=== PATIENT | male | born 1990 | race Caucasian/White ===

== ENCOUNTER 2022-03-06 13:01 | Emergency (ER) | payer SELFPAY ==
[~2022-03-06] VITALS: Ht 170.2 cm; Wt 83.9 kg
[2022-03-06 13:40] VITALS: BP 133/71
--- NOTE | 2022-03-06 13:59 | NUR ---
pt was triaged. while being roomed. patient no longer wanted to proceed with treatment. left ed. was not seen by antonietta. pat.
== END 2022-03-06 14:03 | disposition left against medical advice (07) ==
LOC: ER 13:07
DX: Z53.21 Procedure and treatment not carried out due to patient leaving prior to being seen by health care provider (principal)

== ENCOUNTER 2022-03-09 13:56 | Emergency (ER) | payer SELFPAY ==
[~2022-03-09] VITALS: Ht 170.2 cm; Wt 83.9 kg
[2022-03-09 14:29] VITALS: BP 119/70
[2022-03-09] MEDS ORDERED: NAPROXEN 250 MG TABLET ONE (19:11)
[2022-03-09] MEDS ORDERED: NAPR-1009 PO (19:16)
[2022-03-09] MEDS ORDERED: NAPROXEN 250 MG TABLET PO ONE (19:30)
== END 2022-03-09 19:41 | disposition home or self-care (01) ==
LOC: ER 14:02
DX: M79.672 Pain in left foot (principal); M79.671 Pain in right foot; F15.90 Other stimulant use, unspecified, uncomplicated; Z79.1 Long term (current) use of non-steroidal anti-inflammatories (NSAID)

== ENCOUNTER 2022-10-30 18:15 | Emergency (ER) | payer OTHER ==
[~2022-10-30] VITALS: Ht 170.2 cm; Wt 70.3 kg
[~2022-10-30 18:15] MED LIST: NAPR-1009 PO
[2022-10-30 18:54] VITALS: BP 101/64; TEMP 98.4; O2SAT 95
[2022-10-30] MEDS ORDERED: KETOROLAC TROMETHAMINE INJ 60 MG/2 ML VIAL IM ONE (19:30)
[2022-10-30] MEDS ORDERED: KETOROLAC TROMETHAMINE INJ 30 MG/ML VIAL ONE (19:33)
[2022-10-30 20:09] LABS: CALCIUM, SERUM 10.3 mg/dL (8.5-10.1); CREATININE 0.7 mg/dL (0.6-1.3); POTASSIUM 3.5 mmol/L (3.5-5.1)
[2022-10-30] MEDS ORDERED: MORPHINE SULFATE INJ 2 MG/ML DISP.SYRIN IM ONE (20:30)
[2022-10-30 20:31] LABS: BASOPHILS # (AUTO) 0.1 K/uL (0.0-0.2); BASOPHILS % (AUTO) 0.8 % (0.0-2.0); EOSINOPHILS # (AUTO) 0.5 K/uL (0.0-0.7); EOSINOPHILS % (AUTO) 6.4 % (0.0-6.0); HEMATOCRIT 36 % (39-51); HEMOGLOBIN 11.4 g/dL (13.5-17.5); LYMPHOCYTES # (AUTO) 1.9 K/uL (0.8-4.8); LYMPHOCYTES % (AUTO) 23.2 % (20.0-44.0); MEAN CORPUSCULAR HEMOGLOBIN 27 PG (26.0-33.0); MEAN CORPUSCULAR HGB CONC 32 g/dl (31.0-36.0); MEAN CORPUSCULAR VOLUME 85 fL (80-96); MONOCYTES # (AUTO) 0.8 K/uL (0.1-1.30); MONOCYTES % (AUTO) 9.3 % (2.0-12.0); NEUTROPHILS % (AUTO) 60.3 % (43.0-81.0); PLATELET COUNT (AUTO) 543 K/uL (150-450); RED BLOOD CELL COUNT(AUTO) 4.16 MIL/uL (4.5-6.0); RED CELL DISTRIBUTION WIDTH 19.2 % (11.5-15.0); WHITE BLOOD COUNT (AUTO) 8.3 K/uL (4.3-11.0)
[2022-10-30] MEDS ORDERED: MORPHINE SULFATE INJ 2 MG/ML DISP.SYRIN ONE (20:47)
== END 2022-10-31 00:18 | disposition home or self-care (01) ==
LOC: ER 18:40
DX: M79.10 Myalgia, unspecified site (principal); Z59.00 Homelessness unspecified; Z20.822 Contact with and (suspected) exposure to COVID-19
CPT/HCPCS: 99283; 87426; 96372; 85025; 80048; 82550; 36415; J2270; C9803; J1885

== ENCOUNTER 2022-10-31 20:25 | Emergency (ER) | payer OTHER ==
[~2022-10-31] VITALS: Ht 170.2 cm; Wt 71.2 kg
[2022-10-31 20:58] VITALS: BP 118/67; TEMP 98.8; O2SAT 98
== END 2022-10-31 22:55 | disposition left against medical advice (07) ==
LOC: ER 20:26
DX: K62.5 Hemorrhage of anus and rectum (principal); Z53.21 Procedure and treatment not carried out due to patient leaving prior to being seen by health care provider

== ENCOUNTER 2022-11-01 00:10 | Emergency (ER) | payer OTHER ==
[~2022-11-01] VITALS: Ht 170.2 cm; Wt 71.2 kg
[2022-11-01 00:56] VITALS: BP 124/73; TEMP 97.3; O2SAT 97
== END 2022-11-01 04:30 | disposition left against medical advice (07) ==
LOC: ER 00:11
DX: Z76.5 Malingerer [conscious simulation] (principal); M79.10 Myalgia, unspecified site; Z98.890 Other specified postprocedural states; Z59.00 Homelessness unspecified; Z79.899 Other long term (current) drug therapy

== ENCOUNTER 2023-07-09 21:36 | Inpatient (IN) | payer OTHER ==
[~2023-07-09] VITALS: Ht 170.2 cm; Wt 74.8 kg
[2023-07-09] MEDS ORDERED: ONDANSETRON HCL/PF 4 MG/2 ML VIAL ONE (23:05)
[2023-07-09] MEDS ORDERED: CEFEPIME 1 GM VIAL ONE (23:05)
[2023-07-09] MEDS ORDERED: VANCOMYCIN 1 GM /D5W 250 ML PB IV ONE (23:06)
[2023-07-09] MEDS ORDERED: MORPHINE SULFATE INJ 4 MG/ML DISP.SYRIN ONE (23:06)
[2023-07-09] MEDS: ONDANSETRON HCL/PF 4 MG/2 ML VIAL IVP ONE (23:07)
[2023-07-09] MEDS: MORPHINE SULFATE INJ 2 MG/ML DISP.SYRIN IV ONE (23:07)
[2023-07-09] MEDS: CEFEPIME 1 GM in IV D5W 50 ML IV ONE (23:07)
[2023-07-09] MEDS: VANCOMYCIN 1 GM in IV D5W 250 ML IV ONE (23:08)
[2023-07-09] MEDS: IV NS 0.9% 1,000 ML BAG IV ONE (23:08)
[2023-07-09 23:20] LABS: INR 1.13 (0.91-1.10); PARTIAL THROMBOPLASTIN TIME 23.9 SEC (24.3-34.3); PROTHROMBIN TIME 11.9 SECS (9.2-11.1)
[2023-07-09 23:21] LABS: BASOPHILS # (AUTO) 0.1 K/uL (0.0-0.2); BASOPHILS % (AUTO) 0.4 % (0.0-2.0); EOSINOPHILS # (AUTO) 0.1 K/uL (0.0-0.7); EOSINOPHILS % (AUTO) 0.9 % (0.0-6.0); HEMATOCRIT 36 % (39-51); HEMOGLOBIN 11.3 g/dL (13.5-17.5); LYMPHOCYTES # (AUTO) 1.6 K/uL (0.8-4.8); LYMPHOCYTES % (AUTO) 13.4 % (20.0-44.0); MEAN CORPUSCULAR HEMOGLOBIN 28 PG (26.0-33.0); MEAN CORPUSCULAR HGB CONC 32 g/dl (31.0-36.0); MEAN CORPUSCULAR VOLUME 87 fL (80-96); MONOCYTES % (AUTO) 8.4 % (2.0-12.0); NEUTROPHILS # (AUTO) 9.4 K/uL (1.8-8.9); NEUTROPHILS % (AUTO) 76.9 % (43.0-81.0); PLATELET COUNT (AUTO) 477 K/uL (150-450); RED BLOOD CELL COUNT(AUTO) 4.08 MIL/uL (4.5-6.0); RED CELL DISTRIBUTION WIDTH 18.2 % (11.5-15.0); WHITE BLOOD COUNT (AUTO) 12.3 K/uL (4.3-11.0)
[2023-07-09 23:35] LABS: ALANINE AMINOTRANSFERASE 28 U/L (12-78); ALBUMIN 3.1 g/dL (3.4-5.0); ALKALINE PHOSPHATASE 101 U/L (46-116); ASPARTATE AMINOTRANSFERASE 39 U/L (15-37); BILIRUBIN,DIRECT 0.1 mg/dL (0.0-0.2); BILIRUBIN,TOTAL 0.5 mg/dL (0.2-1.0); CALCIUM, SERUM 9.2 mg/dL (8.5-10.1); CARBON DIOXIDE 22 mmol/L (21-32); CHLORIDE 103 mmol/L (98-107); CREATININE 0.5 mg/dL (0.6-1.3); GLUCOSE 93 mg/dL (74-106); POTASSIUM 4.3 mmol/L (3.5-5.1); SODIUM SERUM 137 mmol/L (136-145); UREA NITROGEN, BLOOD 8 mg/dL (7-18)
[2023-07-09 23:46] LABS: APPEARANCE,URINE CLEAR (CLEAR); BILIRUBIN,URINE 1+ (NEGATIVE); BLOOD, URINE NEGATIVE Ery/uL (NEGATIVE); COLOR,URINE YELLOW (YELLOW); KETONES,URINE 3+ mg/dL (NEGATIVE); LEUKOCYTE ESTERASE ,URINE NEGATIVE (NEGATIVE); NITRITE, URINE NEGATIVE (NEGATIVE); PROTEIN,URINE TRACE mg/dl (NEGATIVE); UGLUCOSE NEGATIVE (NEGATIVE); UROBILINOGEN,URINE 0.2 EU/dL (0.2)
[2023-07-09 23:54] LABS: LACTIC ACID 1.5 mmol/L (0.4-2.0)
[2023-07-10] MEDS ORDERED: ONDANSETRON HCL/PF 4 MG/2 ML VIAL IVP PRN (01:00)
[2023-07-10] MEDS ORDERED: MAG HYDROX/AL HYDROX/SIMETH 30 ML UDC PO PRN (01:00)
[2023-07-10] MEDS ORDERED: ACETAMINOPHEN 325 MG TABLET PO PRN (01:00)
[2023-07-10] MEDS: IV NS 0.9% 1,000 ML IV PRN (02:21)
[2023-07-10] MEDS: ENOXAPARIN SODIUM 40 MG/0.4 ML DISP.SYRIN SQ SCH (02:24)
[2023-07-10 02:55] LABS: ADD URINE CULTURE NO; BACTERIA,URINE 1+ /HPF (None Seen); RBC,URINE 0-2 /HPF (0-2); SQUAMOUS EPITHELIAL CELL,UR None Seen /HPF (None Seen); WBC,URINE 0-2 /HPF (0-3)
[2023-07-10 02:56] LABS: MUCUS,URINE Few /LPF (None Seen)
[2023-07-10] MEDS: MORPHINE SULFATE INJ 2 MG/ML DISP.SYRIN IV PRN (03:30)
[2023-07-10] MEDS ORDERED: GABA-536 PO (07:52)
[2023-07-10] MEDS ORDERED: OXYC10TA49 PO (07:52)
[2023-07-10] MEDS ORDERED: BACL20TA PO (07:52)
[2023-07-10] MEDS: VANCOMYCIN HCL 1.25 GM in IV D5W 250 ML IV SCH (07:56)
[2023-07-10 08:00] VITALS: BP 94/57; TEMP 97.8; O2SAT 94
[2023-07-10] MEDS: CEFEPIME 1 GM in IV D5W 50 ML IV SCH (11:53)
[2023-07-10 12:36] LABS: WHITE BLOOD COUNT (AUTO) 5.5 K/uL (4.3-11.0)
[2023-07-10 12:40] LABS: BASOPHILS % (AUTO) 0.5 % (0.0-2.0); EOSINOPHILS # (AUTO) 0.3 K/uL (0.0-0.7); EOSINOPHILS % (AUTO) 5.6 % (0.0-6.0); HEMATOCRIT 31 % (39-51); HEMOGLOBIN 10.1 g/dL (13.5-17.5); LYMPHOCYTES # (AUTO) 1.7 K/uL (0.8-4.8); LYMPHOCYTES % (AUTO) 31.5 % (20.0-44.0); MEAN CORPUSCULAR HEMOGLOBIN 27 PG (26.0-33.0); MEAN CORPUSCULAR HGB CONC 33 g/dl (31.0-36.0); MEAN CORPUSCULAR VOLUME 83 fL (80-96); MONOCYTES # (AUTO) 0.7 K/uL (0.1-1.30); MONOCYTES % (AUTO) 13.2 % (2.0-12.0); NEUTROPHILS # (AUTO) 2.7 K/uL (1.8-8.9); NEUTROPHILS % (AUTO) 49.2 % (43.0-81.0); PLATELET COUNT (AUTO) 335 K/uL (150-450); RED BLOOD CELL COUNT(AUTO) 3.69 MIL/uL (4.5-6.0); RED CELL DISTRIBUTION WIDTH 17.3 % (11.5-15.0)
[2023-07-10 12:52] LABS: CALCIUM, SERUM 8.3 mg/dL (8.5-10.1); CREATININE 0.5 mg/dL (0.6-1.3); PHOSPHORUS 2.5 mg/dL (2.5-4.9); POTASSIUM 3.4 mmol/L (3.5-5.1)
[2023-07-10 16:00] VITALS: BP 102/60; TEMP 98.2; O2SAT 99
[2023-07-10 20:00] VITALS: BP 101/60; TEMP 97.5; O2SAT 100
[2023-07-11 07:26] LABS: BASOPHILS % (AUTO) 0.3 % (0.0-2.0); EOSINOPHILS # (AUTO) 0.4 K/uL (0.0-0.7); EOSINOPHILS % (AUTO) 8.5 % (0.0-6.0); HEMATOCRIT 30 % (39-51); LYMPHOCYTES # (AUTO) 2.3 K/uL (0.8-4.8); LYMPHOCYTES % (AUTO) 45.1 % (20.0-44.0); MEAN CORPUSCULAR HEMOGLOBIN 28 PG (26.0-33.0); MEAN CORPUSCULAR HGB CONC 33 g/dl (31.0-36.0); MEAN CORPUSCULAR VOLUME 85 fL (80-96); MONOCYTES # (AUTO) 0.7 K/uL (0.1-1.30); MONOCYTES % (AUTO) 12.9 % (2.0-12.0); NEUTROPHILS # (AUTO) 1.7 K/uL (1.8-8.9); NEUTROPHILS % (AUTO) 33.2 % (43.0-81.0); PLATELET COUNT (AUTO) 335 K/uL (150-450); RED BLOOD CELL COUNT(AUTO) 3.57 MIL/uL (4.5-6.0); RED CELL DISTRIBUTION WIDTH 17.5 % (11.5-15.0); WHITE BLOOD COUNT (AUTO) 5.2 K/uL (4.3-11.0)
[2023-07-11 07:49] LABS: CALCIUM, SERUM 8.6 mg/dL (8.5-10.1); CREATININE 0.5 mg/dL (0.6-1.3); MAGNESIUM 2.1 mg/dL (1.8-2.4); PHOSPHORUS 2.6 mg/dL (2.5-4.9); POTASSIUM 3.5 mmol/L (3.5-5.1)
[2023-07-11 08:00] VITALS: BP 101/67; TEMP 98.1; O2SAT 99
[2023-07-11 16:00] VITALS: BP 85/51; TEMP 98.2; O2SAT 99
[2023-07-11] MEDS: VANCOMYCIN HCL 1.25 GM in IV D5W 250 ML IV SCH (17:56)
[2023-07-11 20:06] VITALS: BP 102/46; TEMP 98.2; O2SAT 99
[2023-07-12 08:00] VITALS: BP 98/50; TEMP 97.7; O2SAT 100
[2023-07-12 08:14] LABS: CALCIUM, SERUM 8.9 mg/dL (8.5-10.1); CREATININE 0.6 mg/dL (0.6-1.3); POTASSIUM 3.7 mmol/L (3.5-5.1)
[2023-07-12 16:00] VITALS: BP 111/63; TEMP 98; O2SAT 100
[2023-07-12 20:00] VITALS: BP 112/68; TEMP 98.8; O2SAT 100
[2023-07-12] MEDS ORDERED: CIPROFLOXACIN HCL 250 MG TABLET PO SCH (21:00)
[2023-07-12] MEDS: CIPROFLOXACIN HCL 500 MG TABLET PO SCH (22:07)
[2023-07-12] MEDS: SULFAMETH/TRIMETH 800/160 MG 1 UDTAB TABLET PO SCH (22:07)
[2023-07-12] MEDS: ENOXAPARIN SODIUM 40 MG/0.4 ML DISP.SYRIN SQ ONE (22:12)
[2023-07-13 08:00] VITALS: BP 103/52; TEMP 97.5; O2SAT 97
[2023-07-13] MEDS ORDERED: SULF1TAB48 PO (09:20)
[2023-07-13] MEDS ORDERED: CIPR-262 PO (09:20)
[2023-07-13] MEDS ORDERED: Sulfameth/Trimeth 800/160 Mg PO (09:20)
[2023-07-13 11:17] LABS: CREATININE 0.5 mg/dL (0.6-1.3); POTASSIUM 4.3 mmol/L (3.5-5.1)
[2023-07-13 11:30] LABS: BASOPHILS % (AUTO) 0.6 % (0.0-2.0); EOSINOPHILS # (AUTO) 0.4 K/uL (0.0-0.7); EOSINOPHILS % (AUTO) 8.9 % (0.0-6.0); HEMATOCRIT 34 % (39-51); LYMPHOCYTES # (AUTO) 1.8 K/uL (0.8-4.8); LYMPHOCYTES % (AUTO) 35.7 % (20.0-44.0); MEAN CORPUSCULAR HEMOGLOBIN 28 PG (26.0-33.0); MEAN CORPUSCULAR HGB CONC 32 g/dl (31.0-36.0); MEAN CORPUSCULAR VOLUME 86 fL (80-96); MONOCYTES # (AUTO) 0.4 K/uL (0.1-1.30); MONOCYTES % (AUTO) 8.6 % (2.0-12.0); NEUTROPHILS # (AUTO) 2.3 K/uL (1.8-8.9); NEUTROPHILS % (AUTO) 46.2 % (43.0-81.0); PLATELET COUNT (AUTO) 387 K/uL (150-450); RED BLOOD CELL COUNT(AUTO) 3.96 MIL/uL (4.5-6.0); RED CELL DISTRIBUTION WIDTH 17.9 % (11.5-15.0)
[2023-07-13] MEDS: HYDROCODONE/APAP 5/325MG TABLET PO PRN (12:04)
[2023-07-13] MEDS: MEROPENEM 1 G in IV NS 0.9% 100 ML IV SCH (15:13)
[2023-07-13 16:03] VITALS: BP 95/53; TEMP 98.2; O2SAT 98
[2023-07-13 20:00] VITALS: BP 95/57; TEMP 98; O2SAT 96
[2023-07-13] MEDS: ENOXAPARIN SODIUM 40 MG/0.4 ML DISP.SYRIN SQ SCH (20:59)
[2023-07-13] MEDS ORDERED: CIPROFLOXACIN HCL 500 MG TABLET PO SCH (22:00)
[2023-07-14] MEDS: TRAZODONE 50 MG TABLET PO PRN (00:07)
[2023-07-14 08:18] VITALS: BP 86/46; TEMP 97.5; O2SAT 100
[2023-07-14 16:00] VITALS: BP 99/54; TEMP 97; O2SAT 97
[2023-07-14] MEDS ORDERED: Z GUARD REMEDY 4 OZ OINT TP PRN (17:30)
[2023-07-14 20:00] VITALS: BP 108/68; TEMP 98.2; O2SAT 99
[2023-07-15 09:00] VITALS: BP 108/73; TEMP 98.4; O2SAT 100
[2023-07-15 16:00] VITALS: BP 117/73; TEMP 98.1; O2SAT 100
[2023-07-15 20:00] VITALS: BP_SYST 107; BP_SYST 97; BP_DIAS 63; BP_DIAS 71; TEMP 98.2; O2SAT 100; O2SAT 98
[2023-07-16 16:00] VITALS: BP 109/72; TEMP 98.2; O2SAT 100
[2023-07-16 20:00] VITALS: BP 116/71; TEMP 97.7; O2SAT 98
[2023-07-16 21:08] VITALS: BP 116/72; TEMP 97.7; O2SAT 98
[2023-07-17 07:30] VITALS: BP 100/46; TEMP 97.6; O2SAT 100
[2023-07-17 16:00] VITALS: BP 106/61; TEMP 98.1; O2SAT 99
[2023-07-17 20:00] VITALS: BP 111/60; TEMP 98.2; O2SAT 100
== END 2023-07-18 12:50 | disposition left against medical advice (07) | DRG 380 ==
LOC: ER 21:37 → MED 23:37
PROVIDERS: ADMIT Student in an Organized Health Care Education/Training Program; ATTEND Internal Medicine
DX: L89.159 Pressure ulcer of sacral region, unspecified stage (principal); G82.20 Paraplegia, unspecified; D64.9 Anemia, unspecified; F90.9 Attention-deficit hyperactivity disorder, unspecified type; S36.09XS Other injury of spleen, sequela; N31.9 Neuromuscular dysfunction of bladder, unspecified; Z59.00 Homelessness unspecified; Z99.3 Dependence on wheelchair; W34.00XS Accidental discharge from unspecified firearms or gun, sequela; Z79.899 Other long term (current) drug therapy; Z72.0 Tobacco use; Z96.0 Presence of urogenital implants
CPT/HCPCS: 36415; 71045-TC; 80048-TC; 80076-TC; 80202-TC; 81001; 83605-TC; 83735-TC; 84100-TC; 84484-TC; 85025-TC; 85730-TC; 87040-TC; 87081-TC; 87086-TC; A4223; A6253; A6403; A6407; G0378; J0692; J1650; J2185; J2270; J2405; J3370; J7030; J7040; J7050; J7060

== ENCOUNTER 2024-09-02 21:21 | Inpatient (IN) | payer OTHER ==
[~2024-09-02] VITALS: Ht 175.3 cm; Wt 94.3 kg
[~2024-09-02 21:21] MED LIST changes: +BACL20TA PO; +GABA-536 PO; -NAPR-1009 PO; +OXYC10TA49 PO
[2024-09-02] MEDS ORDERED: IOHEXOL-300 100 ML VIAL IV ONE (23:25)
[2024-09-02] MEDS ORDERED: CT SWABBABLE VALVE TRANS SET 1 EA INFUS.SET MC ONE (23:25)
[2024-09-02] MEDS ORDERED: IV NS 0.9% 250 ML IV ONE (23:25)
[2024-09-02 23:30] LABS: BASOPHILS # (AUTO) 0.1 K/uL (0.0-0.2); BASOPHILS % (AUTO) 0.5 % (0.0-2.0); EOSINOPHILS # (AUTO) 0.1 K/uL (0.0-0.7); EOSINOPHILS % (AUTO) 0.9 % (0.0-6.0); HEMATOCRIT 39 % (39-51); HEMOGLOBIN 12.3 g/dL (13.5-17.5); LYMPHOCYTES # (AUTO) 2.4 K/uL (0.8-4.8); LYMPHOCYTES % (AUTO) 17.1 % (20.0-44.0); MEAN CORPUSCULAR HEMOGLOBIN 25 PG (26.0-33.0); MEAN CORPUSCULAR HGB CONC 32 g/dl (31.0-36.0); MEAN CORPUSCULAR VOLUME 79 fL (80-96); MONOCYTES # (AUTO) 1.1 K/uL (0.1-1.30); MONOCYTES % (AUTO) 7.7 % (2.0-12.0); NEUTROPHILS # (AUTO) 10.2 K/uL (1.8-8.9); NEUTROPHILS % (AUTO) 73.8 % (43.0-81.0); PLATELET COUNT (AUTO) 569 K/uL (150-450); RED CELL DISTRIBUTION WIDTH 20.2 % (11.5-15.0); WHITE BLOOD COUNT (AUTO) 13.8 K/uL (4.3-11.0)
[2024-09-02 23:43] LABS: INR 1.09 (0.91-1.10); PARTIAL THROMBOPLASTIN TIME 31.1 SEC (24.3-34.3); PROTHROMBIN TIME 11.5 SECS (9.2-11.1)
[2024-09-02] MEDS: IV NS 0.9% 1,000 ML BAG IV ONE (23:44)
[2024-09-02 23:45] LABS: ALBUMIN 3.5 g/dL (3.4-5.0); BILIRUBIN,DIRECT 0.1 mg/dL (0.0-0.2); BILIRUBIN,TOTAL 0.4 mg/dL (0.2-1.0); CALCIUM, SERUM 9.5 mg/dL (8.5-10.1); CREATININE 0.6 mg/dL (0.6-1.3); TOTAL PROTEIN, SERUM 8.5 g/dL (6.4-8.2)
[2024-09-02 23:47] LABS: LACTIC ACID 1.3 mmol/L (0.4-2.0)
[2024-09-03 00:44] LABS: APPEARANCE,URINE TURBID (CLEAR); BILIRUBIN,URINE 2+ (NEGATIVE); BLOOD, URINE 3+ Ery/uL (NEGATIVE); COLOR,URINE DARK YELLOW (YELLOW); KETONES,URINE 1+ mg/dL (NEGATIVE); LEUKOCYTE ESTERASE ,URINE TRACE (NEGATIVE); NITRITE, URINE POSITIVE (NEGATIVE); PH,URINE 6.5 (5.0-8.0); PROTEIN,URINE 3+ mg/dl (NEGATIVE); UGLUCOSE NEGATIVE (NEGATIVE)
[2024-09-03 00:48] LABS: ADD URINE CULTURE YES; BACTERIA,URINE Few /HPF (None Seen); RBC,URINE 21-50 /HPF (0-2); SQUAMOUS EPITHELIAL CELL,UR Few /HPF (None Seen); WBC,URINE 51-80 /HPF (0-3)
[2024-09-03 00:53] LABS: BARBITURATE, URINE NEGATIVE (NEGATIVE); BENZODIAZEPINE, URINE NEGATIVE (NEGATIVE); CANNABINOID, URINE NEGATIVE (NEGATIVE); COCCAINE, URINE NEGATIVE (NEGATIVE); PHENCYCLIDINE SCREEN,URINE NEGATIVE (NEGATIVE)
[2024-09-03 01:02] LABS: AMPHETAMINE, URINE POSITIVE (NEGATIVE); OPIATE, URINE POSITIVE (NEGATIVE)
[2024-09-03] MEDS ORDERED: MAG HYDROX/AL HYDROX/SIMETH 30 ML UDC PO PRN (01:30)
[2024-09-03] MEDS ORDERED: Z GUARD REMEDY 4 OZ OINT TP PRN (01:30)
[2024-09-03] MEDS ORDERED: ONDANSETRON HCL/PF 4 MG/2 ML VIAL IVP PRN (01:30)
[2024-09-03] MEDS ORDERED: MAGNESIUM HYDROXIDE 30 ML UDC PO PRN (01:30)
[2024-09-03] MEDS ORDERED: ACETAMINOPHEN 325 MG TABLET PO PRN (01:30)
[2024-09-03] MEDS ORDERED: IV NS 0.9% 1,000 ML IV PRN (01:30)
[2024-09-03] MEDS ORDERED: CEFEPIME 2 GM in IV NS 0.9% 50 ML IV SCH (02:30)
[2024-09-03] MEDS: TRAMADOL HCL 50 MG TABLET PO PRN (03:42)
[2024-09-03] MEDS: ENOXAPARIN SODIUM 40 MG/0.4 ML DISP.SYRIN SQ SCH (03:45)
[2024-09-03 04:37] VITALS: BP 105/72; TEMP 98.4; O2SAT 95
[2024-09-03] MEDS ORDERED: CIPROFLOXACIN IV RTU 200 ML IV ONE (05:01)
[2024-09-03] MEDS: CIPROFLOXACIN IV RTU 400 MG in PREMIX 1 EA IV SCH (05:04)
[2024-09-03 08:00] VITALS: BP 101/51; TEMP 97.8; O2SAT 96
[2024-09-03] MEDS: NICOTINE PATCH (21MG) 21 MG PATCH.TD24 TD SCH (10:30)
[2024-09-03 10:34] LABS: CALCIUM, SERUM 8.9 mg/dL (8.5-10.1); CREATININE 0.6 mg/dL (0.6-1.3); MAGNESIUM 2.3 mg/dL (1.8-2.4); PHOSPHORUS 3.8 mg/dL (2.5-4.9); POTASSIUM 3.5 mmol/L (3.5-5.1)
[2024-09-03] MEDS: PANTOPRAZOLE 40 MG TABLET.DR PO SCH (10:58)
[2024-09-03] MEDS: DAKINS QUARTER STRENGTH (0.125%) 480 ML BOTTLE TOP SCH (10:58)
[2024-09-03 11:08] LABS: BASOPHILS # (AUTO) 0.1 K/uL (0.0-0.2); BASOPHILS % (AUTO) 0.9 % (0.0-2.0); EOSINOPHILS # (AUTO) 0.3 K/uL (0.0-0.7); EOSINOPHILS % (AUTO) 4.1 % (0.0-6.0); HEMATOCRIT 34 % (39-51); HEMOGLOBIN 10.6 g/dL (13.5-17.5); LYMPHOCYTES % (AUTO) 24.8 % (20.0-44.0); MEAN CORPUSCULAR HEMOGLOBIN 25 PG (26.0-33.0); MEAN CORPUSCULAR HGB CONC 32 g/dl (31.0-36.0); MEAN CORPUSCULAR VOLUME 78 fL (80-96); MONOCYTES % (AUTO) 11.8 % (2.0-12.0); NEUTROPHILS # (AUTO) 4.7 K/uL (1.8-8.9); NEUTROPHILS % (AUTO) 58.4 % (43.0-81.0); PLATELET COUNT (AUTO) 519 K/uL (150-450); RED BLOOD CELL COUNT(AUTO) 4.28 MIL/uL (4.5-6.0); RED CELL DISTRIBUTION WIDTH 19.6 % (11.5-15.0); WHITE BLOOD COUNT (AUTO) 8.1 K/uL (4.3-11.0)
== END 2024-09-03 13:53 | disposition left against medical advice (07) | DRG 344 ==
LOC: ER 21:28 → MEDSG1 09-03 02:00
PROVIDERS: ADMIT Nurse Practitioner Family; ATTEND Nurse Practitioner Acute Care
DX: M86.8X8 Other osteomyelitis, other site (principal); L89.154 Pressure ulcer of sacral region, stage 4; G82.20 Paraplegia, unspecified; F17.210 Nicotine dependence, cigarettes, uncomplicated; T14.8XXS Other injury of unspecified body region, sequela; Z93.6 Other artificial openings of urinary tract status; R33.9 Retention of urine, unspecified; Z91.013 Allergy to seafood; N31.9 Neuromuscular dysfunction of bladder, unspecified; W34.00XS Accidental discharge from unspecified firearms or gun, sequela; K21.9 Gastro-esophageal reflux disease without esophagitis; N39.0 Urinary tract infection, site not specified; L08.9 Local infection of the skin and subcutaneous tissue, unspecified; Z59.02 Unsheltered homelessness; Z99.3 Dependence on wheelchair; Z91.199 Patient's noncompliance with other medical treatment and regimen due to unspecified reason; Z53.29 Procedure and treatment not carried out because of patient's decision for other reasons
CPT/HCPCS: 36415; 71045-TC; 80048-TC; 80076-TC; 81001; 83605-TC; 83735-TC; 84100-TC; 85025-TC; 85730-TC; 87040-TC; 87086-TC; A4216; A4223; A6403; G0378; J0692; J0744; J7030; J7050; Q9967